=== PATIENT | female | born 1975 | race Hispanic/Latino ===

== ENCOUNTER 2016-09-18 09:49 | Emergency (ER) | payer BC ==
[2016-09-18 09:49] VITALS: BMI 24.1
--- NOTE | 2016-09-18 09:52 | ED PDOC ---
Arrival/HPI - General Historian: Patient - General Time Seen by Provider: 09/18/16 09:51 - History of Present Illness Narrative History of Present Illness (Text): 09/18/16 09:52 41 y/o female, no significant pmh, penicillin allergy, last tetanus under 2 months ago, c/o lt. thumb laceration by the knife x 2 hours. Pt. was slicing the lemon, accidentally sliced the lt. thumb region, no numbness or tingling, able to flex and extend the thumb, no dizziness, no other medical or psychological complaints. (Dallas Cotter) Past Medical History - Provider Review Nursing Documentation Reviewed: Yes - Past History Past History: No Previous - Infectious Disease Hx of Infectious Diseases: None - Tetanus Immunization Tetanus Immunization: Unknown - Past Medical History Past Medical History: No Previous - Cardiac Hx Cardiac Disorders: No - Pulmonary Hx Respiratory Disorders: No - Neurological Hx Neurological Disorder: No - HEENT Hx HEENT Disorder: No - Renal Hx Renal Disorder: No - Endocrine/Metabolic Hx Endocrine Disorders: No - Hematological/Oncological Hx Blood Disorders: No - Integumentary Hx Dermatological Disorder: No - Musculoskeletal/Rheumatological Hx Musculoskeletal Disorders: No - Gastrointestinal Hx Gastrointestinal Disorders: No - Genitourinary/Gynecological Hx Genitourinary Disorders: No - Psychiatric Hx Depression: Yes (post depression) Hx Substance Use: No - Past Surgical History Past Surgical History: No Previous - Surgical History Hx Section: Yes Other/Comment: NASAL SX - Anesthesia Hx Anesthesia: Yes Hx Anesthesia Reactions: No Hx Malignant Hyperthermia: No - Suicidal Assessment Feels Threatened In Home Enviroment: No Family/Social History - Physician Review Nursing Documentation Reviewed: Yes Family/Social History: Unknown Family HX Smoking Status: Former Smoker Hx Alcohol Use: No Hx Substance Use: No Hx Substance Use Treatment: No Allergies/Home Meds Allergies/Adverse Reactions: Allergies Penicillins Allergy (Verified 09/18/16 10:09) ANAPHYLAXIS Review of Systems - Review of Systems Constitutional: absent: Fatigue, Fevers Respiratory: absent: SOB, Cough, Sputum Cardiovascular: absent: Chest Pain Gastrointestinal: absent: Abdominal Pain, Diarrhea, Nausea, Vomiting Skin: Laceration. absent: Rash, Pruritis, Skin Lesions, Abscess, Ulcer, Cellulitis Neurological: absent: Headache, Dizziness, Focal Weakness Physical Exam Vital Signs Reviewed: Yes Temperature: Afebrile Blood Pressure: Normal Pulse: Regular Respiratory Rate: Normal Appearance: Positive for: Well-Appearing, Non-Toxic, Comfortable Pain Distress: Mild Mental Status: Positive for: Alert and Oriented X 3 - Systems Exam Head: Present: Atraumatic, Normocephalic Pupils: Present: PERRL Extroacular Muscles: Present: EOMI Conjunctiva: Present: Normal Mouth: Present: Moist Mucous Membranes Neck: Present: Normal Range of Motion Respiratory/Chest: Present: Clear to Auscultation, Good Air Exchange. No: Respiratory Distress, Accessory Muscle Use Cardiovascular: Present: Regular Rate and Rhythm, Normal S1, S2. No: Murmurs Abdomen: Present: Normal Bowel Sounds. No: Tenderness, Distention, Peritoneal Signs Back: Present: Normal Inspection Upper Extremity: Present: Normal Inspection, Other (Lt. hand 1st digit thumb visible approx. 1cm superficial laceration on the tip of the thumb with bleeding resolved, no bony tenderness, FROM without limitation, sensation intact , motor 5/5, +radial pulse, capillary refill< 2 seconds, neurovascular intact. ) . No: Cyanosis, Edema Neurological: Present: GCS=15, Speech Normal, Motor Func Grossly Intact, Gait Normal, Memory Normal Skin: Present: Warm, Dry, Normal Color. No: Rashes Psychiatric: Present: Alert, Oriented x 3, Normal Insight, Normal Concentration Vital Signs Temp Pulse Resp BP Pulse Ox 09/18/16 10:04 98.2 F 89 18 122/84 99 Medical Decision Making ED Course and Treatment: I was available for consultation during PA evaluation. The chart was reviewed by me, and I agree with disposition. The documented history was done by the physician emergency room orderly. The documented physical exam was done by the physician emergency room orderly. The documented procedures were done by the physician emergency room orderly. (Constantine Cash) 09/18/16 10:23 -clindamycin -sensation intact, motor 5/5, wound irrigate with 1000cc normal saline, clean with betadine, dermabond (pt. refused stiches) applied with good wound approximation, dermabond applied, gauze dressing, sensation intact, motor 5/5. -Discharge home with clindamycin, keep the dressing dry and clean for 3 days, avoid strenuous exercise or activity, follow up with your own pmd within 2 days , return to the ER for any new or worsening signs or symptoms. (Dallas Cotter) - PA / PERSONAL CARER / Resident Statement MD/DO has reviewed & agrees with the documentation as recorded. Disposition/Present on Arrival - Present on Arrival Any Indicators Present on Arrival: No History of DVT/PE: No History of Uncontrolled Diabetes: No Urinary Catheter: No History of Decub. Ulcer: No History Surgical Site Infection Following: None - Disposition Have Diagnosis and Disposition been Completed?: Yes Disposition Time: 10:26 Patient Plan: Discharge - Disposition Diagnosis: Thumb laceration Disposition: HOME/ ROUTINE Condition: GOOD Additional Instructions: Discharge home with clindamycin, keep the dressing dry and clean for 3 days, avoid strenuous exercise or activity, follow up with your own pmd within 2 days , return to the ER for any new or worsening signs or symptoms. Prescriptions: Clindamycin [Cleocin] 300 mg PO TID #15 cap Referrals: [facility] at [facility] [Outside] - Follow up with primary Forms: WORK NOTE
[2016-09-18 10:05] VITALS: BP 122/84; PULSE 89; RESP 18; TEMP 98.2; O2SAT 99
== END 2016-09-18 10:36 | disposition home or self-care (01) ==
LOC: ED 09:49
DX: S61.012A Laceration without foreign body of left thumb without damage to nail, initial encounter (principal); W26.0XXA Contact with knife, initial encounter; Z87.891 Personal history of nicotine dependence

== ENCOUNTER 2017-01-01 10:41 | Emergency (ER) | payer BC ==
[2017-01-01 10:42] VITALS: BMI 24.1
[2017-01-01 11:03] VITALS: TEMP 98.4
--- NOTE | 2017-01-01 12:16 | RAD ---
PROCEDURE: Radiographs of the left tibia and fibula. HISTORY: injury COMPARISON: None available. TECHNIQUE: Frontal and lateral views obtained. FINDINGS: BONES: No fracture or destructive lesion. JOINT SPACES: Unremarkable. OTHER FINDINGS: None. IMPRESSION: Unremarkable radiographs of the left tibia and fibula.
--- NOTE | 2017-01-01 12:18 | RAD ---
PROCEDURE: Left Knee Radiographs. HISTORY: Pain. COMPARISON: None. FINDINGS: BONES: Normal. No fracture. JOINTS: Normal. No osteoarthritis. JOINT EFFUSION: None. OTHER FINDINGS: None. IMPRESSION: Normal radiographs of the left knee.
--- NOTE | 2017-01-01 12:19 | RAD ---
PROCEDURE: Left Ankle Radiographs. HISTORY: injury COMPARISON: None FINDINGS: BONES: Normal. No fracture. JOINTS: Normal. No osteoarthritis. Ankle mortise maintained. Talar dome intact SOFT TISSUES: Normal. OTHER FINDINGS: None. IMPRESSION: Normal left ankle radiographs.
--- NOTE | 2017-01-01 12:27 | ED PDOC ---
Arrival/HPI - General Chief Complaint: Lower Extremity Problem/Injury Time Seen by Provider: 01/01/17 11:26 Historian: Patient - History of Present Illness Narrative History of Present Illness (Text): 01/01/17 41 yo female come in for evaluation of left ankle and left knee pain developed since early today. Pt sts, "woke up to check on my son when he started to cough and slipped, fell down". Pt sts, apin is localized over joints and worse with weight bearing. Otherwise, pt denies was ambulatory r right after the accident. Pt denies head injury, LOC, syncope, dizziness, headache, N/V, neck apin, CP, back pain, denies obvious deformity, weakness, sensory or vascular deficits to B /L UEs and LEs. Ambulate to Ed for evaluation, not in any apparent distress. 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 Past Medical History - Provider Review Nursing Documentation Reviewed: Yes - Travel History Have you recently traveled outside [place] w/in the past 3 mons?: No - Past History Past History: No Previous - Infectious Disease Hx of Infectious Diseases: None - Tetanus Immunization Tetanus Immunization: Unknown - Past Medical History Past Medical History: No Previous - Cardiac Hx Cardiac Disorders: No - Pulmonary Hx Respiratory Disorders: No - Neurological Hx Neurological Disorder: No - HEENT Hx HEENT Disorder: No - Renal Hx Renal Disorder: No - Endocrine/Metabolic Hx Endocrine Disorders: No - Hematological/Oncological Hx Blood Disorders: No - Integumentary Hx Dermatological Disorder: No - Musculoskeletal/Rheumatological Hx Musculoskeletal Disorders: No - Gastrointestinal Hx Gastrointestinal Disorders: No - Genitourinary/Gynecological Hx Genitourinary Disorders: No - Psychiatric Hx Depression: Yes (post depression) Hx Substance Use: No - Past Surgical History Past Surgical History: No Previous - Surgical History Hx Section: Yes Other/Comment: NASAL SX - Anesthesia Hx Anesthesia: Yes Hx Anesthesia Reactions: No Hx Malignant Hyperthermia: No - Suicidal Assessment Feels Threatened In Home Enviroment: No Family/Social History - Physician Review Nursing Documentation Reviewed: Yes Family/Social History: No Known Family HX Smoking Status: Former Smoker Hx Alcohol Use: No Hx Substance Use: No Hx Substance Use Treatment: No Allergies/Home Meds Allergies/Adverse Reactions: Allergies Penicillins Allergy (Verified 09/18/16 10:09) ANAPHYLAXIS Review of Systems - Physician Review All systems were reviewed & negative as marked: Yes - Review of Systems Constitutional: Normal Eyes: Normal Respiratory: Normal Musculoskeletal: Arthralgias. absent: Back Pain, Neck Pain, Joint Swelling Skin: Normal Neurological: Normal Endocrine: Normal Hemo/Lymphatic: Normal Psychiatric: Normal Physical Exam Vital Signs Reviewed: Yes Vital Signs Temp Pulse Resp BP Pulse Ox 01/01/17 10:59 98.4 F 80 18 110/77 99 Temperature: Afebrile Blood Pressure: Normal Pulse: Regular Respiratory Rate: Normal Appearance: Positive for: Well-Appearing, Non-Toxic, Comfortable Pain Distress: Mild Mental Status: Positive for: Alert and Oriented X 3 - Systems Exam Head: Present: Atraumatic, Normocephalic Conjunctiva: Present: Normal Neck: Present: Normal Range of Motion, Trachea Midline. No: MIDLINE TENDERNESS , Paraspinal Tenderness Respiratory/Chest: No: Tender to Palpation Back: No: Midline Tenderness Upper Extremity: Present: Normal ROM, NORMAL PULSES, Neurovascularly Intact. No : Deformity Lower Extremity: Present: NORMAL PULSES, Normal ROM, Tenderness (mild tenderness over lateral malleolus of Left ankle and medical aspect of left knee with trace ecchymoses. NO edema, no palpable deformity or neurovascular deficist to B/L LEs.), Neurovascularly Intact. No: Swelling, Deformity Neurological: Present: GCS=15, Speech Normal, Motor Func Grossly Intact, Normal Sensory Function, Norm Deep Tendon Reflexes Skin: Present: Warm, Dry, Normal Color Psychiatric: Present: Alert, Oriented x 3 Medical Decision Making ED Course and Treatment: 01/01/17 On re-evaluation, pt is afebrile, hemodynamicaly stable. non-toxic. Ambulatory in ED with stable gait. head: AT/NC neck: (-) midline tenderness. Left LE: exam c/w sprain to ankle and knee. FAROM, no neurovascular deficits Xrays review and appears normal. Air cast applied to left ankle and farrah wrap applied to left knee. Pt advised and ref. to f/u with Ortho in 2-3 days for re-evaluation. return to Ed if any worsening or new changes. - RAD Interpretation Radiology Orders: 01/01/17 11:26 ANKLE LEFT 3 VIEWS ROUTINE [RAD] Stat KNEE LEFT 2 VIEWS (AP & LAT) [RAD] Stat TIBIA FIBULA LEFT [RAD] Stat (-) acute fx or dislocation Marine Farmer: Radiologist Disposition/Present on Arrival - Present on Arrival Any Indicators Present on Arrival: No History of DVT/PE: No History of Uncontrolled Diabetes: No Urinary Catheter: No History of Decub. Ulcer: No History Surgical Site Infection Following: None - Disposition Have Diagnosis and Disposition been Completed?: Yes Diagnosis: Ankle sprain, Knee contusion Disposition: HOME/ ROUTINE Disposition Time: 12:16 Patient Plan: Discharge Condition: STABLE Discharge Instructions (ExitCare): Ankle Stirrup Splint (ED), Ankle Sprain (ED) , Knee Sprain (ED) Additional Instructions: Air cast to left ankle and farrah wrap to left knee for 1 week RICE-rest, ice compression, elevation Take Ibuprofen for pain Follow up with Orthopedist in 2-3 days for re-evaluation. Return to ED if any worsening or new changes. Referrals: PCP,NO [Primary Care Provider] - Follow up with primary Oscar Godoy MD [Staff Provider] - Follow up with primary Forms: [employer] (Lithuanian)
[2017-01-01 12:52] VITALS: BP 111/87; PULSE 72; RESP 16; O2SAT 100
== END 2017-01-01 12:50 | disposition home or self-care (01) ==
LOC: ED 10:41
DX: S80.02XA Contusion of left knee, initial encounter (principal); S93.402A Sprain of unspecified ligament of left ankle, initial encounter; W01.0XXA Fall on same level from slipping, tripping and stumbling without subsequent striking against object, initial encounter; Y93.89 Activity, other specified; Y92.89 Other specified places as the place of occurrence of the external cause

== ENCOUNTER 2017-09-28 15:37 | Emergency (ER) | payer BC ==
[2017-09-28 15:37] VITALS: BMI 24.1
--- NOTE | 2017-09-28 16:04 | ED PDOC ---
Arrival/HPI - General Historian: Patient <Pearl Culp A - Last Filed: 09/28/17 17:20> <Rogerio Mercedes - Last Filed: 09/28/17 21:16> - General Chief Complaint: Abdominal Pain Time Seen by Provider: 09/28/17 15:42 - History of Present Illness Narrative History of Present Illness (Text): 09/28/17 16:00 42yo female with no PMhx who present with complaint of pelvic and lower back pain x 4days. Notes that she saw her PMD for the symptoms and was given Cipro for UTI. States she stopped taking the Cipro after 2days, because she didn't like how it made her feel. She told her PMD and was told she only had blood in her UA and was advised to go to ED to r/o kidney stone. States lower back pain is usually after walking for a while and relieve when laying down. She did not take any pain medication. She denies nausea, vomiting, diarrhea, constipation, dysuria, urinary frequency, fever, chills, any other complaint. (Pearl Culp A) Past Medical History - Provider Review Nursing Documentation Reviewed: Yes - Past History Past History: No Previous - Infectious Disease Hx of Infectious Diseases: None - Tetanus Immunization Tetanus Immunization: Unknown - Past Medical History Past Medical History: No Previous - Cardiac Hx Cardiac Disorders: No - Pulmonary Hx Respiratory Disorders: No - Neurological Hx Neurological Disorder: No - HEENT Hx HEENT Disorder: No - Renal Hx Renal Disorder: No - Endocrine/Metabolic Hx Endocrine Disorders: No - Hematological/Oncological Hx Blood Disorders: No - Integumentary Hx Dermatological Disorder: No - Musculoskeletal/Rheumatological Hx Musculoskeletal Disorders: No - Gastrointestinal Hx Gastrointestinal Disorders: No - Genitourinary/Gynecological Hx Genitourinary Disorders: No - Psychiatric Hx Depression: Yes (post depression) Hx Substance Use: No - Past Surgical History Past Surgical History: No Previous - Surgical History Hx Section: Yes Other/Comment: NASAL SX - Anesthesia Hx Anesthesia: Yes Hx Anesthesia Reactions: No Hx Malignant Hyperthermia: No - Suicidal Assessment Feels Threatened In Home Enviroment: No <Pearl Culp A - Last Filed: 09/28/17 17:20> Family/Social History - Physician Review Nursing Documentation Reviewed: Yes Family/Social History: Unknown Family HX Smoking Status: Former Smoker Hx Alcohol Use: No Hx Substance Use: No Hx Substance Use Treatment: No <Pearl Culp A - Last Filed: 09/28/17 17:20> Allergies/Home Meds <Pearl Culp A - Last Filed: 09/28/17 17:20> <Rogerio Mercedes - Last Filed: 09/28/17 21:16> Allergies/Adverse Reactions: Allergies Penicillins Allergy (Verified 09/28/17 15:48) ANAPHYLAXIS Home Medications: Home Meds Medication Instructions Recorded Confirmed Ciprofloxacin HCl [Cipro] 500 mg PO BID 09/28/17 09/28/17 Review of Systems - Physician Review All systems were reviewed & negative as marked: Yes - Review of Systems Constitutional: Normal Eyes: Normal ENT: Normal Respiratory: Normal Cardiovascular: Normal Gastrointestinal: Abdominal Pain. absent: Constipation, Diarrhea, Nausea, Vomiting Genitourinary Female: Normal Musculoskeletal: Back Pain Skin: Normal Neurological: Normal Endocrine: Normal Hemo/Lymphatic: Normal Psychiatric: Normal <Pearl Culp A - Last Filed: 09/28/17 17:20> Physical Exam Vital Signs Reviewed: Yes Temperature: Afebrile Blood Pressure: Normal Pulse: Regular Respiratory Rate: Normal Appearance: Positive for: Well-Appearing, Non-Toxic, Comfortable Pain Distress: None Mental Status: Positive for: Alert and Oriented X 3 - Systems Exam Head: Present: Atraumatic, Normocephalic Pupils: Present: PERRL Extroacular Muscles: Present: EOMI Conjunctiva: Present: Normal Mouth: Present: Moist Mucous Membranes Neck: Present: Normal Range of Motion Respiratory/Chest: Present: Clear to Auscultation, Good Air Exchange. No: Respiratory Distress, Accessory Muscle Use Cardiovascular: Present: Regular Rate and Rhythm, Normal S1, S2. No: Murmurs Abdomen: Present: Other (Soft). No: Tenderness, Distention, Peritoneal Signs, Rebound, Guarding, McBurney's Point Tender, Rovsing's Sign Present Back: No: CVA Tenderness, Midline Tenderness, Paraspinal Tenderness, Pain with Leg Raise Upper Extremity: Present: Normal Inspection. No: Cyanosis, Edema Lower Extremity: Present: Normal Inspection. No: Edema Neurological: Present: GCS=15, CN II-XII Intact, Speech Normal Skin: Present: Warm, Dry, Normal Color. No: Rashes Psychiatric: Present: Alert, Oriented x 3, Normal Insight, Normal Concentration <Diru,Happiness A - Last Filed: 09/28/17 17:20> Vital Signs Temp Pulse Resp BP Pulse Ox 09/28/17 17:50 98.5 F 98 H 19 122/72 97 09/28/17 17:37 98.5 F 87 19 120/72 99 09/28/17 15:58 90 20 121/71 100 - Lab Interpretations Lab Results: Lab Results 09/28/17 16:03: Urine Color Yellow, Urine Appearance Clear, Urine pH 6.0, Ur Specific [place] >= 1.030, Urine Protein Negative, Urine Glucose (UA) Negative, Urine Ketones Negative, Urine Blood Small H, Urine Nitrate Negative, Urine Bilirubin Negative, Urine Urobilinogen 0.2, Ur Leukocyte Esterase Negative, Urine RBC 0 - 2, Urine WBC 1 - 3, Ur Epithelial Cells 1 - 3, Urine Bacteria Few - RAD Interpretation Radiology Orders: 09/28/17 15:51 ABD & PELVIS W/O PO OR IV CONT [CT] Stat - Medication Orders Current Medication Orders: Discontinued Medications Nitrofurantoin Macrocrystals (Macrobid) 100 mg PO Q12 STA PRN Reason: Protocol Stop: 09/28/17 17:16 Last Admin: 09/28/17 17:35 Dose: Not Given Non-Admin Reason: Patient Refused Tramadol HCl (Ultram) 50 mg PO STAT STA Stop: 09/28/17 15:52 Last Admin: 09/28/17 17:30 Dose: Not Given Non-Admin Reason: Patient Refused MAR Pain Assessment Document 09/28/17 17:30 GMI (Rec: 09/28/17 17:30 GMI [id number]) Pain Reassessment Is this a pain reassessment? Yes Sleep Is patient sleeping during reassessment? No Presence of Pain Presence of Pain No - PA / BENDER MACHINE / Resident Statement MD/DO has examined the patient and agrees with the treatment plan. <Rogerio Mercedes - Last Filed: 09/28/17 21:16> Disposition/Present on Arrival - Present on Arrival Any Indicators Present on Arrival: No History of DVT/PE: No History of Uncontrolled Diabetes: No Urinary Catheter: No History of Decub. Ulcer: No History Surgical Site Infection Following: None - Disposition Have Diagnosis and Disposition been Completed?: Yes Disposition Time: 17:20 Patient Plan: Discharge <Diru,Happiness A - Last Filed: 09/28/17 17:20> <Rogerio Mercedes - Last Filed: 09/28/17 21:16> - Disposition Diagnosis: Acute cystitis Disposition: HOME/ ROUTINE Condition: STABLE Additional Instructions: Follow up with your doctor Return to ED for any new or worsening symptoms Prescriptions: Nitrofurantoin Macrocrystals [Macrobid] 100 mg PO BID #14 cap Referrals: Blu Luciano MD [Primary Care Provider] - Follow up with primary Forms: [employer] (Dominican)
[2017-09-28 16:16] LABS: URINE APPEARANCE CLEAR (CLEAR); URINE BILIRUBIN NEGATIVE (NEGATIVE); URINE BLOOD SMALL (NEGATIVE); URINE COLOR YELLOW (YELLOW); URINE GLUCOSE (UA) NEGATIVE (NEGATIVE); URINE LEUKOCYTE ESTERASE NEGATIVE Leu/uL (NEGATIVE); URINE PROTEIN NEGATIVE mg/dL (<30 mg/dL); URINE UROBILINOGEN 0.2 E.U./dL (<1 E.U./dL)
[2017-09-28 16:20] LABS: URINE RBC 0 - 2 /hpf (0-2)
[2017-09-28 16:21] LABS: URINE BACTERIA FEW (NEG)
--- NOTE | 2017-09-28 17:05 | CT ---
PROCEDURE: CT abdomen pelvis 09/28/2017 HISTORY: Abdominal pain COMPARISON: No prior study available for comparison. TECHNIQUE: Contiguous axial images of the abdomen and pelvis without oral or intravenous contrast material. Additional 2D sagittal and coronal reformats generated. Radiation dose: Total exam DLP = 346.99 mGy-cm. This CT exam was performed using one or more of the following dose reduction techniques: Automated exposure control, adjustment of the mA and/or kV according to patient size, and/or use of iterative reconstruction technique. . FINDINGS: LOWER THORAX: No basilar infiltrates effusions or pneumothorax. Tiny hiatal hernia. LIVER: Unremarkable. No gross lesion or ductal dilatation. GALLBLADDER AND BILE DUCTS: The gallbladder appears incompletely distended likely due to nonfasting state. No definitive evidence of intraluminal gallbladder calculi. PANCREAS: Unremarkable. No mass. No ductal dilatation. SPLEEN: Unremarkable. No splenomegaly. ADRENALS: Unremarkable. KIDNEYS AND URETERS: Kidneys demonstrate relatively symmetric size. There is slight ptosis right kidney. No evidence of nephrolithiasis or hydronephrosis. BLADDER: Urinary bladder incompletely distended which may in part account for thick-walled appearance. Possibility of a cystitis not excluded. Clinical correlation recommended. REPRODUCTIVE: Possible prominent bilateral ovarian follicular cysts. APPENDIX: Normal-appearing retrocecal appendix best seen on the axial image number [id number]. BOWEL: Evaluation of the bowel is limited due to the lack of oral contrast material. Stomach is partially distended with food debris liquid and air. Visualized loops of small bowel exhibit normal contour and caliber. No evidence of acute mechanical small bowel obstruction. . There appears to be some mild fecalized content within distal loops of small bowel ; rule out on stasis. Stool and air seen throughout the large bowel. No definitive evidence of abnormal mural wall thickening. PERITONEUM: Unremarkable. No fluid collection. No free air. Small fat containing umbilical hernia. LYMPH NODES: Unremarkable. No enlarged lymph nodes. VASCULATURE: Unremarkable. No aortic aneurysm. BONES: There is mid levoscoliosis centered at approximately L2 level. No acute compression fractures no retropulsed fragments. OTHER FINDINGS: None. IMPRESSION: No acute intra abdominal pathology. . Questionable mild fecalized content within distal loops of small bowel.
[2017-09-28 17:39] VITALS: RESP 19; TEMP 98.5
[2017-09-28 17:56] VITALS: BP 122/72; PULSE 98; O2SAT 97
== END 2017-09-28 17:56 | disposition home or self-care (01) ==
LOC: ED 15:37
DX: N30.00 Acute cystitis without hematuria (principal); Z87.891 Personal history of nicotine dependence